=== PATIENT | male | born 2000 | race Caucasian/White ===

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

== ENCOUNTER 2020-02-16 21:45 | Emergency (ER) | payer OTHER, SELFPAY ==
[2020-02-16] VITALS (13 sets, daily range): BP systolic 123–134; BP diastolic 53–71; PULSE 58–80; RESP 12–22; TEMP 35.9; O2SAT 95–100
--- NOTE | ~2020-02-16 | XR_ITS ---
EXAMINATION: XR chest 2V EXAM DATE: 02/16/2020 22:40 INDICATION: Left-sided chest pain radiating under breast. Blurry vision. TECHNIQUE: Frontal and lateral projections of the chest obtained and reviewed. There is no prior keke dy for comparison. FINDINGS: The lungs are clear. There are no pleural effusions. The cardiomediastinal silhouette is within normal limits. There is no pneumothorax suspected. The bones and soft tissues are unremarkab le. IMPRESSION: Normal chest x-ray exam. Reviewed, dictated and finalized at location A. E RUNNER IMPRESSION: Normal chest x-ray exam.
--- NOTE | 2020-02-16 22:02 | ECG_ITS ---
Measurements Intervals [place] Rate: 65 P: 60 [place]: 149 QRS: 72 QRSD: 100 T: 53 QT: 405 QTc: 424 Interpretive Statements SINUS RHYTHM NORMAL ECG Electronically Signed On 02-17-2020 6:45:48 [employer] by Ahsan Dacosta D.O.
--- NOTE | 2020-02-16 22:03 | ED.CHESTPAIN ---
HPI - Chest Pain General Chief Complaint: Chest Pain Stated Complaint: chest pain Time Seen by Provider: 02/16/20 22:03 Source: patient Mode of arrival: ambulatory Limitations: no limitations History of Present Illness HPI narrative: Patient is a 19-year-old male to female, prefers her pronouns, on estrogen replacement therapy as well as testosterone latoya who presents for evaluation of chest pain and palpitations. Patient reports she was leaving work this evening when she felt palpitations and a pressure over the left side of her chest. She states the pressure did occur after she had listed something heavy at work. Patient currently still endorses the symptoms. No cough, hemoptysis or shortness of breath. No recent fever or chills. No known history of Covid or coagulopathy. Patient does have a history of anxiety. She does smoke cigarettes. Patient has been compliant with her hormone therapy regimen. No calf swelling or leg pain. Related Data Home Medications Medication Instructions Recorded Confirmed bicalutamide mg 02/16/20 estradiol mg 02/16/20 progesterone micronized mg 02/16/20 Allergies Allergy/AdvReac Type Severity Reaction Status Date / Time No Known Allergies Allergy Verified 02/16/20 21:59 Review of Systems Review of Systems: Narrative: CONSTITUTIONAL: Denies fever, chills, or sweats. CARDIOVASCULAR: Reports left-sided chest pressure, palpitations without edema RESPIRATORY: Denies cough or dyspnea. GASTROINTESTINAL: Denies abdominal pain, nausea, vomiting, or diarrhea. GENITOURINARY: Denies dysuria or hematuria. SKIN: Denies rash or itching. MUSCULOSKELETAL: Denies back pain, joint pain, or myalgia. NEUROLOGIC: Denies headache, numbness, or weakness. PSYCHIATRIC: Reports anxiety PMFSH Past Medical History Medical History History of hormone therapy Transgender Social History Social History (Updated 02/16/20 @ 22:51 by Kaci Castillo MD) Smoking status: Current every day smoker Tobacco type: cigarettes Alcohol intake: current Alcohol use details: Social, rare Substance use: never Living arrangements: with family Occupation/Education: occupation Additional occupation/education comments: [employer] Gender identity (if verbalized by the patient): Transgender Female Exam Narrative: Exam Narrative: GENERAL: Awake, alert, conversant HEAD: Normocephalic, atraumatic. EYES: PERRLA and EOMI. ENT: Nares clear, no rhinorrhea or epistaxis. Mucous membranes moist. NECK: Supple. CHEST: No respiratory distress, breathing even and non labored, mild chest wall tenderness over left chest HEART: Regular rate, sinus rhythm, no murmurs rubs or gallops ABDOMEN:Non distended, non tender EXTREMITIES: Normal range of motion. No edema. No calf pain. SKIN: Warm, dry, no rash. NEURO:No focal deficits. Alert and oriented x3 Course Vital Signs Vital signs: Vital Signs Temperature 35.9 C L 02/16/20 21:55 Pulse Rate 69 02/16/20 21:55 Respiratory Rate 18 02/16/20 21:55 Blood Pressure 123/59 L 02/16/20 21:55 Pulse Oximetry 99 02/16/20 21:55 Temperature 35.9 C L 02/16/20 21:55 Pulse Rate 80 02/16/20 23:07 Respiratory Rate 22 H 02/16/20 23:07 Blood Pressure 128/70 02/16/20 23:07 Pulse Oximetry 100 02/16/20 23:09 MDM - Chest Pain MDM Narrative Medical decision making narrative: Patient presented for evaluation of chest pain and palpitations. At the time of initial assessment, ABCs are intact and vital signs are stable. Patient without any evidence of tachydysrhythmias or arrhythmias on EKG. No acute ischemic changes or evidence of right heart strain. Pain is reproducible slightly on exam. Given patient's history of hormone therapy, was concern for possible PE, thus did obtain D-dimer which is not significantly elevated to warrant CTA. Furthermore, patient is not hypoxic or tachycardic. Initial troponin is undetected. Chest x-ray without acute cardiopu
[2020-02-16 23:05] LABS: Basophils Percent Auto 0.3 % (0.2-1.2); Eosinophils Absolute Auto 0.1 K/mm3 (0-0.3); Eosinophils Percent Auto 1.3 % (0-4.4); Hematocrit 41.8 % (42.0-52.0); Hemoglobin 14.4 g/dL (14.0-18.0); Immature Granulocyte Absolute 0.04 K/mm3 (0.00-0.031); Immature Granulocyte Percent A 0.4 % (0-0.5); Lymphocytes Absolute Auto 3.36 K/mm3 (0.9-3.2); Lymphocytes Percent Auto 33.8 % (18.3-44.2); Mean Corpuscular HGB Conc 34.4 g/dl (32-36); Mean Corpuscular Hemoglobin 28.5 pg (26-34); Mean Corpuscular Volume 82.6 fl (80-100); Mean Platelet Volume 10.3 fl (7.4-10.4); Monocytes Absolute Auto 0.7 K/mm3 (0.1-0.6); Monocytes Percent Auto 7.4 % (2.6-8.5); Neutrophils Absolute Auto 5.6 K/mm3 (1.3-6.7); Neutrophils Percent Auto 56.8 % (45.5-73.1); Platelet Count Result 236 k/mm3 (150-375); Red Blood Count 5.06 M/mm3 (4.6-6.20); Red Cell Distribution Width 11.9 % (11.5-14.5); White Blood Count 9.9 K/mm3 (4.5-10.0)
[2020-02-16] MEDS: ASPIRIN 81 MG CHEWABLE TABLET 324 MG PO (23:06)
[2020-02-16 23:17] LABS: Prothrombin Time 13.7 Seconds (11.1-14.7)
[2020-02-16 23:18] LABS: Partial Thromboplastin Time 26.9 SECONDS (22.3-36.8)
[2020-02-16 23:20] LABS: D Dimer 0.28 ug/mL (<0.48)
[2020-02-16 23:21] LABS: Anion Gap 8 mmol/L (8-16); Blood Urea Nitrogen 17 mg/dL (8-21); Calcium 9.4 mg/dL (8.9-10.7); Carbon Dioxide 28 mmol/L (22-30); Chloride 103 mmol/L (98-107); Estimated CRCL calculation 7215 ml/min; Estimated Glomerular Filt Rate > 60; Glucose 95 mg/dL (75-110); Sodium 139 mmol/L (134-143)
[2020-02-16 23:33] LABS: Troponin I < 0.012 ng/mL (0.000-0.034)
[2020-02-17 00:27] VITALS: BP 130/84; PULSE 68; RESP 17; O2SAT 99
== END 2020-02-17 00:29 | disposition left against medical advice (07) ==
PROVIDERS: Emergency Medicine; Emergency Provider Emergency Medicine
DX: R07.89 Other chest pain (principal); F17.210 Nicotine dependence, cigarettes, uncomplicated; Z87.890 Personal history of sex reassignment
CPT/HCPCS: 36415; 71046; 80048; 84484; 85025; 85380; 85610; 85730; 93005; 99284; A9270